=== PATIENT | male | born 1950 | race Caucasian/White ===

== ENCOUNTER 2017-11-25 19:30 | Emergency (ER) | payer SELFPAY ==
[~2017-11-25] VITALS: Ht 162.6 cm; Wt 84.5 kg
[~2017-11-25 19:30] MED LIST: AMLODIPINE BESYL5 MG PO; BENAZEPRIL HCL10 MG PO
[2017-11-25] MEDS ORDERED: NORCO 5/3251 TABLET PO (22:04)
[2017-11-25] MEDS ORDERED: AMOXICILLIN500 MG PO (22:04)
[2017-11-25 22:11] VITALS: BP 121/79
== END 2017-11-25 22:04 | disposition home or self-care (01) ==
LOC: EME 19:30
DX: K02.9 Dental caries, unspecified (principal); K04.7 Periapical abscess without sinus
CPT/HCPCS: 99281; 99283